=== PATIENT | female | born 2000 | race Caucasian/White ===

== ENCOUNTER 2022-07-06 07:18 | Day surgery (SDC) | payer OTHER ==
[2022-07-05 14:20] VITALS: BMI 34.2
[2022-07-06] MEDS ORDERED: EPINEPHrine 1:1,000 1,000 MCG/ML ML ONE (07:59)
[2022-07-06] MEDS ORDERED: FENTANYL CITRATE/PF 50 MCG/ML VIAL ONE (08:38)
[2022-07-06] MEDS ORDERED: MIDAZOLAM HCL 2 MG/2 ML SINGLE DOSE VIAL ONE (08:38)
[2022-07-06] MEDS ORDERED: ROPIVACAINE HCL 0.5% 30ML VIAL ONE (08:39)
[2022-07-06] MEDS ORDERED: LIDOCAINE HCL/PF 2% SDV 5ML VIAL ONE ×2 (08:58→10:01)
[2022-07-06] MEDS ORDERED: PROPOFOL 40 ML ONE (08:58)
[2022-07-06] MEDS ORDERED: SUCCINYLCHOLINE CHLORIDE 200 MG/10 ML SYRINGE ONE (08:58)
[2022-07-06] MEDS ORDERED: ceFAZolin SODIUM 1 GM VIAL ONE (10:01)
[2022-07-06] MEDS ORDERED: ONDANSETRON 4 MG/2 ML VIAL ONE (10:01)
[2022-07-06] MEDS ORDERED: DEXAMETHASONE SOD PHOSPHATE 4 MG/1 ML VIAL ONE (10:01)
[2022-07-06] MEDS ORDERED: PROPOFOL 20 ML ONE (11:09)
[2022-07-06 13:38] VITALS: TEMP 97.9
[2022-07-06] MEDS ORDERED: oxyCODONE HCL 5 MG TABLET PO PRN (13:40)
[2022-07-06] MEDS ORDERED: ONDANSETRON 4 MG/2 ML VIAL IVPUSH PRN (13:40)
[2022-07-06 13:42] VITALS: BP 115/70; PULSE 75; RESP 18
[2022-07-06] MEDS ORDERED: LACTATED RINGERS SOLUTION 1,000 ML IV SCH (13:45)
== END 2022-07-06 13:30 | disposition home or self-care (01) ==
LOC: FASU 07:18
PROVIDERS: ATTEND Orthopaedic Surgery
PROC: 0LM24ZZ Reattachment of Left Shoulder Tendon, Percutaneous Endoscopic Approach (ICD-10-PCS; principal; 2022-07-06 10:10)
DX: S43.432A Superior glenoid labrum lesion of left shoulder, initial encounter (principal); M25.312 Other instability, left shoulder; X58.XXXA Exposure to other specified factors, initial encounter; Y93.9 Activity, unspecified; Y92.9 Unspecified place or not applicable
CPT/HCPCS: 84703; 94760; C1713